=== PATIENT | male | born 2000 ===

== ENCOUNTER 2019-11-29 11:00 | Outpatient (CLI) | payer OTHER, SELFPAY ==
--- NOTE | ~2019-11-29 | US_ITS ---
EXAMINATION: 1. US biopsy lymph node 2. US abscess cyst aspiration DATE: 11/29/2019 11:54 INDICATION: Right axillary mass. TECHNIQUE: The procedure including the risks, benefits, and alternatives was discussed with the patie nt. Risks discussed included bleeding and infection. The patient understood the risks and agreed to p roceed. The skin overlying the right axilla was prepped and draped in usual sterile fashion. Anesthe tic was administered with 1% lidocaine subcutaneously. An 18-gauge spinal needle was inserted into th e mass under ultrasound guidance, and 20 mL red opaque fluid was aspirated and discarded. An 18 gauge core biopsy needle was then used to obtain 3 core biopsy specimens of the solid portion of the mass under continuous sonographic guidance. The entry site was cleaned and dressed. There were no immedia te complications. FINDINGS: Ultrasound images demonstrate the needle in a 5.1 x 3.1 x 4.1 cm centrally necrotic mass in right axilla. IMPRESSION: 1. Ultrasound-guided fluid aspiration from the central portion of a necrotic right axillary mass yiel ding 20 mL red, opaque fluid, which was discarded. 2. Ultrasound-guided core needle biopsy of the solid portion of the right axillary mass. Reviewed, dictated and finalized at location A. IMPRESSION: 1. Ultrasound-guided fluid aspiration from the central portion of a necrotic ri ght axillary mass yielding 20 mL red, opaque fluid, which was discarded. 2. Ultrasound-guided core needle biopsy of the solid portion of the right axill ranjit mass.
--- NOTE | ~2019-11-29 | US_ITS ---
EXAMINATION: US axilla RT DATE: 11/29/2019 12:22 INDICATION: Right axillary mass. TECHNIQUE: Multiple grayscale and Doppler ultrasound images of the right axilla were obtained. COMPARISON: None FINDINGS: There is a 4.1 x 5.1 x 3.1 cm centrally necrotic mass in right axilla. IMPRESSION: 1. 5.1 cm centrally necrotic mass in right axilla. The differential diagnosis includes malignancy, ab scess, and sebaceous cyst. Reviewed, dictated and finalized at location A. IMPRESSION: 1. 5.1 cm centrally necrotic mass in right axilla. The differential diagnosis i ncludes malignancy, abscess, and sebaceous cyst.
== END 2019-11-29 11:01 | disposition home or self-care (01) ==
PROVIDERS: PCP Emergency Medicine; Visit Provider Surgery
DX: R22.31 Localized swelling, mass and lump, right upper limb (principal)
CPT/HCPCS: 38505; 76882; 76942; 88305

== ENCOUNTER 2021-04-13 15:47 | Emergency (ER) | payer OTHER, SELFPAY ==
--- NOTE | 2021-04-13 15:56 | ED.GENADULT ---
HPI - General Adult General Chief complaint: Extremity Injury, Upper Stated complaint: Cyst on left wrist Time Seen by Provider: 04/13/21 16:00 Source: patient, RN notes reviewed and old records reviewed Mode of arrival: ambulatory Limitations: no limitations History of Present Illness HPI narrative: 21 year old male presents to [facility] care with complaints of lump to his dorsal left hand in area between proximal thumb and wrist that he states has been there for approximately 6-8 months. Patient has palpable semi firm mobile nodule 1.5cm diameter noted on dorsal aspect of his left hand in area between proximal thumb and wrist that is non tender, no redness inflammation or warmth. Patient states that he has no pain to area on left hand with no tingling or numbness of hand or fingers with full mobility. Patient states that he just wanted to make sure that it is cyst. MD complaint: ganglion cyst left dorsal hand Onset (ago): month(s) (6-8) Location: left (hand dorsal aspect) Treatments prior to arrival: none Related Data Home Medications Medication Instructions Recorded Confirmed No Home Medications 11/19/19 04/13/21 Allergies Allergy/AdvReac Type Severity Reaction Status Date / Time No Known Allergies Allergy Verified 04/13/21 15:54 Review of Systems Review of Systems: CONSTITUTIONAL: Denies fever, chills, or sweats. EYES: Denies visual changes, redness, or discharge. ENT: Denies rhinorrhea, congestion, sore throat, or otalgia. CARDIOVASCULAR: Denies chest pain, palpitations, or edema. RESPIRATORY: Denies cough or dyspnea. GASTROINTESTINAL: Denies abdominal pain, nausea, vomiting, or diarrhea. GENITOURINARY: Denies dysuria or hematuria. SKIN: Denies rash or itching.palpable moveable lump to dorsal aspect of left hand with no pain MUSCULOSKELETAL: Denies back pain, joint pain, or myalgia. NEUROLOGIC: Denies headache, numbness, or weakness. PSYCHIATRIC: Denies anxiety or depression. All systems reviewed & are unremarkable except as noted in HPI and below PMFSH Past Medical History Medical History (Updated 04/13/21 @ 16:56 by Iliana Barbour NP) Mass of right axilla Mass of right axilla drainage and biopsy under fluoroscopy Family History Family History (Updated 04/13/21 @ 16:56 by Iliana Barbour NP) Other No significant family history Social History Social History (Updated 04/13/21 @ 16:34 by Iliana Barbour NP) Smoking status: Never smoker Alcohol intake: current Alcohol use details: social Substance use: never Living arrangements: with family Gender identity (if verbalized by the patient): Male Comments At time of signature, agree with nursing past medical, surgical, social and family history. There is no relevant family history pertinent to the presenting complaint Exam Narrative: GENERAL: Well-appearing, well-nourished, and in no acute distress. HEAD: Normocephalic, atraumatic. EYES: PERRLA and EOMI. ENT: Nares clear, no rhinorrhea or epistaxis. Mucous membranes moist.TM's normal throat pink with no lesions or exudates or tonsil swelling. NECK: Supple.no lymphadenopathy CHEST: Clear to auscultation. No respiratory distress.SAO2 100% on room air HEART: Regular rate and rhythm. No murmur heard. Normal peripheral pulses. ABDOMEN: Soft, nontender, nondistended, normal active bowel sounds. EXTREMITIES: Normal range of motion. No edema. SKIN: Warm, dry, no rash. 1.5cm diameter moveable nodule to dorsal aspect of left hand between proximal thumb and wrist which has been there for 6-8 month with no pain stated on palpation, no redness or warmth of tissue area no tingling or numbness of left hand with full mobility and circulation present. NEURO: No focal deficits. Alert and oriented x3. Course Course Level of Care: Express Care Visit Vital Signs Vital signs: Vital Signs Temperature 36.6 C 04/13/21 16:02 Pulse Rate 79 04/13/21 16:02 Respiratory Rate 16 04/13/21 16:0
[2021-04-13 16:02] VITALS: BP 117/69; PULSE 79; RESP 16; TEMP 36.6; O2SAT 100
== END 2021-04-13 16:14 | disposition home or self-care (01) ==
PROVIDERS: Emergency Provider Registered Nurse
DX: L72.9 Follicular cyst of the skin and subcutaneous tissue, unspecified (principal)
CPT/HCPCS: 99211; G0463